=== PATIENT | female | born 1950 | race Caucasian/White ===

== ENCOUNTER → 2024-01-17 12:00 | Outpatient (REF) | payer OTHER, SELFPAY ==
--- NOTE | 2023-12-13 11:26 | PN.DIAED02 ---
Referral
DSME Class Series Code: [id number]
Referred For: Diabetes Self-Management Training
PHI Release Authorization Form Signed: Yes
Patient Problems:
Current Active Problems
Problem Status Onset
Type 2 diabetes mellitus with hyperglycemia
Demographic
(1) Type 2 diabetes mellitus with hyperglycemia
Status: Acute Code(s): E11.65 - Type 2 diabetes mellitus with hyperglycemia
Patient's primary language-: Romanian
Education: College degree
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
Hours Worked/Week: > 40 (50)
- Social
Primary Support Person: Self & spouse
Primary Care Takers: Self
Living Arrangements: Self & spouse
- Learning Methods
Preferred Method: Other (combination)
Barriers to Learning: None
Glycemic Control
- Blood Glucose Monitoring Assessment
Date: 12/13/23
Blood glucose monitoring at home: No
Monitor Brands: Accu-Chek ([employer] Accuchek Guide Me from home)
Frequency: 2x per day
Time: fasting, after breakfast, after lunch, after dinner
- Hemoglobin A1c
Date: 08/11/23
A1C Percentage (%): 8.8
Medical History of Diabetes
Family Diabetes History: Father, Grandmother (on paternal side), Other (uncle on maternal side)
Previous Diabetes Education: No
Previous visit with Dietitian: No
Complications/Comorbidity/Specialist: Hypertension
Measures
- Anthropometrics
Height: 5 ft 4 in
Actual Weight: 155 lb
- Blood Pressure / Pulse
Blood pressure: 130/60
- Diabetes Management
Medical Management for Diabetes: Complete physical exam (09/08/2023), Dental exam (09/2023), Dilated eye exam (04/2024), Other (covid 19 vaccine 07/06/20,07/27/,03/30/22)
Self-Care
- Tobacco Usage
Do you now, or have you ever smoked?: Never smoked
- Alcohol & Drugs Usage
Drinks Alcohol: No
Uses Recreational Drugs: No
- Meals & Dining
Meals & Dining: Patient skips meals: Yes, Food Intolerance / Allergy: No, Cultural / Scientologist Dietary Needs: No
Primary Food Etl Application Developer: Self
Primary Small Engine Mechanic: Self
Dining Out Frequency: 1-3x per week (2)
- Physical Activity
Physical Limitation: No
Patient participates in physical Activity: Yes
Activity Types: Combination (Olympic lifting, dragon boat racing, cardio)
Duration: > 50 minutes (90 minutes)
Frequency: 6-7x per week (6)
Intensity: Moderate
- Patient-Self Assessment
Diabetes Knowledge: Fair
Feelings About Diabetes: Overwhelmed / Confused
General Health: Good
Importance of Health: Extremely
Stress Level: High
Diabetes Interferes With:: Other (don't know)
Depression Survey Score: 2
Care Plan
- Education Needs
Patient Education Needs: Diabetes disease process, Chronic complications, Acute complications, Medication, Monitoring, Physical activity, Psychosocial Adjustment, Nutritional management, Goal setting & problem solving
Recommended Diabetes Training Program based on assessment: Outpatient Diabetes Education Program
- Plan of Care
Plan of Care:
Gladys recently diagnosed 08/2023 with A1C of 8.8%, Taking Metformin 500 mg QD with largest meal (usually dinner). She brought in an AccuChek Guide Me and states she is nervous about sticking herself. Instructions on proper testing technique, testing
pattern and expected results given with good return demonstration. Result 176 mg/dl, 1 1/2 hr post breakfast of a protein shake (Dr. Cheema). Gladys states that the fingerstick was not not as bad as she thought. Also discussed that her insurance with
pay for a Dexcom CGM which she will most likely switch to. If needed, she will bring to class for assistance in setting up. She eats healthy (lunch-salad with salmon, dinner- salad, protein and carb) and exercises 6 days/week. States she does
consume a lot of fruit, recommend having protein with the fruit. She is due for a repeat A1C. Goals established and directions to classroom given.
--- NOTE | 2023-12-13 12:18 | PN.DIAED04 ---
Education Record
- Education Record
Class Attended: Class 1 (pre registration 12/13/23 for outpt DSME classes starting 01/17/24.)
DSME Class Series Code: [id number]
Instructor: Registered Nurse
Class Curriculum:
Outpatient Diabetes Education Program:
Initial Assessment (45 minutes)
Individualized assessment
Develop personal strategies to promote health and behavior change
Development of diabetes self-management support plan
Class Length (mins): 60
Pre-Program Knowledge: Needs review / Assistance
Pre-Test Score (%): 74
Goals
- Goal 1
Being Active: Other (Continue with Olympic lifting, dragon boal racing and cardio 6 days/week for total of 540 minutes.)
Goals To Be Evaluated: Other
- Goal 2
Healthy Eating: Make better food choices, Follow meal plan
Goals To Be Evaluated: Make better food choices. Follow meal plan
- Goal 3
Monitoring: Take blood sugar in the prescribed pattern (handout provided with schedule and expected results.)
Goals To Be Evaluated: Test BG-prescribed times
--- NOTE | 2024-01-18 14:18 | PN.DIAED14 ---
This is to notify you that your patient with diabetes, BRAXTON RUBIN ( 1950), has enrolled in our diabetes self-management classes that are being held at [facility].
These classes will include an introduction to diabetes, diet, medication, exercise and prevention of complications. At the end of our class series, you will receive a report of your patient's participation and progress for your records.
Please contact me at the Diabetes Center, , if there is any particular information regarding your patient that might be helpful to me.
Sincerely,
FAVIOLA Dunn-, [facility]
Director
Diabetes & Nutrition Services
== END ==
LOC: DES 12:00
PROVIDERS: ATTENDING PHYSICIAN Family Medicine; FAMILY PHYSICIAN Family Medicine
DX: E11.65 Type 2 diabetes mellitus with hyperglycemia (principal)
CPT/HCPCS: 99078

== ENCOUNTER → 2024-01-24 12:00 | Outpatient (REF) | payer OTHER, SELFPAY ==
--- NOTE | 2024-01-25 11:05 | PN.DIAED04 ---
Education Record
- Education Record
Class Attended: Class 2
DSME Class Series Code: [id number]
Instructor: Registered Dietitian (Jane Truong, RD, LDN, CDE)
Class Length (mins): 120
== END ==
LOC: DES 12:00
PROVIDERS: ATTENDING PHYSICIAN Family Medicine
DX: E11.65 Type 2 diabetes mellitus with hyperglycemia (principal)
CPT/HCPCS: 99078

== ENCOUNTER → 2024-01-31 12:00 | Outpatient (REF) | payer OTHER, SELFPAY ==
--- NOTE | 2024-02-01 13:41 | PN.DIAED04 ---
Education Record
- Education Record
Class Attended: Class 3
DSME Class Series Code: [id number]
Instructor: Registered Dietitian (Jane Truong, RD, LDN, CDE)
Class Length (mins): 120
Post-Class 2 & 3 Test Score (%): 88
== END ==
LOC: DES 12:00
PROVIDERS: ATTENDING PHYSICIAN Family Medicine
DX: E11.65 Type 2 diabetes mellitus with hyperglycemia (principal)
CPT/HCPCS: 99078

== ENCOUNTER → 2024-02-07 12:00 | Outpatient (REF) | payer OTHER, SELFPAY | LOC: DES 12:00 | PROVIDERS: ATTENDING PHYSICIAN Family Medicine | DX: E11.65 Type 2 diabetes mellitus with hyperglycemia (principal) | CPT/HCPCS: 99078 ==

== ENCOUNTER → 2024-02-14 12:00 | Outpatient (REF) | payer OTHER, SELFPAY ==
--- NOTE | 2024-02-15 11:55 | PN.DIAED16 ---
This is to notify you that your patient with diabetes, BRAXTON RUBIN ( 1950), has attended the entire series of Diabetes Self-Management Education Classes.
Class 1 (120 minutes): Diabetes Overview - monitoring, stress/psychosocial adjustment, support, goal setting
Class 2 (120 minutes): Meal Planning - serving sizes, menu plans
Class 3 (120 minutes): Introduction to Carbohydrate Counting, Analyzing Food Labels
Class 4 (120 minutes): Medication, Exercise and Activity
Class 5 (120 minutes): Sick Day Management, Strategies to Reduce Complications, Problem Solving, Resources
The following behavioral goals were identified:
Other
Make better food choices
Follow meal plan
Test BG-prescribed times
A follow-up call will be made within three to six months to evaluate attainment of these goals and to check post-program Hemoglobin A1c and overall progress. All class participants are encouraged to contact me if I can be any further assistance in
learning how to manage their diabetes.
Sincerely,
FAVIOLA Dunn-, [facility]
Director
Diabetes & Nutrition Services
--- NOTE | 2024-02-16 14:55 | PN.DIAED04 ---
Education Record
- Education Record
Class Attended: Class 5
DSME Class Series Code: [id number]
Instructor: Nurse Practitioner (FAVIOLA Reed)
Class Curriculum:
Outpatient Diabetes Education Program:
Class 5 (120 minutes)
Prevent, detect, and treat acute complications
Prevent, detect, and treat chronic complications through risk reduction
Develop personal strategies to address psychosocial issues and concerns
Development of diabetes self-management support plan
Letter to physician with DSMS plan attached sent
Class Length (mins): 120
Post-Program Knowledge: Demonstrates competency
Post-Test Score (%): 87
Post-Program Assessment
- Post-Program Assessment
Actual Weight: 71.668 kg
Blood pressure: 138/72
Post-Program Depression Survey Score: 1
Reviewing Previous Goals?: Yes
Pre-Program Depression Survey Score: 2
- Goals 1 Evaluation
Goals To Be Evaluated: Other
- Goals 2 Evaluation
Goals To Be Evaluated: Make better food choices. Follow meal plan
- Goals 3 Evaluation
Goals To Be Evaluated: Test BG-prescribed times
== END ==
LOC: DES 12:00
PROVIDERS: ATTENDING PHYSICIAN Family Medicine
DX: E11.65 Type 2 diabetes mellitus with hyperglycemia (principal)
CPT/HCPCS: 99078

== ENCOUNTER → 2024-02-17 13:02 | Outpatient (REF) | payer OTHER, SELFPAY | LOC: HWWDC 13:02 | PROVIDERS: ATTENDING PHYSICIAN Family Medicine | DX: Z12.31 Encounter for screening mammogram for malignant neoplasm of breast (principal) | CPT/HCPCS: 77063; 77067 ==

== ENCOUNTER → 2024-02-24 10:11 | Outpatient (REF) | payer OTHER, SELFPAY | LOC: HWRAD 10:11 | PROVIDERS: ATTENDING PHYSICIAN Family Medicine | DX: M81.0 Age-related osteoporosis without current pathological fracture (principal) | CPT/HCPCS: 77080 ==

== ENCOUNTER 2024-12-05 07:00 | Emergency (ER) | payer OTHER, SELFPAY ==
[2024-12-05 07:01] VITALS: BP 195/106
[2024-12-05 07:39] VITALS: BP 193/111
[2024-12-05 07:40] VITALS: BMI 27.8
--- NOTE | 2024-12-05 08:01 | ED.GENMED ---
History of Present Illness
General
Chief Complaint: Blood Pressure Problem
Source: patient
Exam Limitations: none
Time Seen by Provider: 12/05/24 07:43
Nursing documentation reviewed up to this point in time: agreed with
History of Present Illness
History of Present Illness:
74 yr old female with past medical history of hypertension diabetes presents to the ER for evaluation. She reports she ran out of her meds 2 days ago and last took them Wednesday. She did call her family doctor however has not received a phone call
back. She awoke today around 3 AM with a headache took her blood pressure and it was 188/110 which is patient come to the ER. She does have a headache. She is not take anything for her headache. She denies any chest pain shortness of breath.
Denies blurred vision.
Patient is medicine includes Norvasc hydrochlorothiazide Bystolic and metformin
Past History
Past History
ED Past Medical History: HTN
ED Past Surgical History: None
Social History
Tobacco: Non-smoker
Alcohol: None
Drug: None
Personal:
Living: with family
Employment: Employed
Family History
Family History: Diabetes
Phy Exam
General Physical Exam
General Presentation: no apparent distress
General age: appears stated age
General Skin: warm and cyanotic
General Habitus: normal
General Mental: alert
General Hydration: appears well hydrated
Cardiovascular Exam
Cardiovascular Exam: regular rate/rhythm, no murmur and normal peripheral pulses
Pulmonary Exam
Pulmonary Exam: lungs clear and no respiratory distress
Neurological Exam
Neurological Exam: alert and oriented x3
Musculoskeletal Exam
Musculoskeletal Exam: full ROM
Skin Exam
Skin Exam: normal color and warm/dry
Psychiatric Exam
Psychiatric Exam: normal mood/affect
Course
Orders/Labs/Results
Orders:
Orders
12/05/24 08:03
CT Head W/o Iv Contrast Urgent
Comment:
Reason For Exam: headache
IV Insert/Care/Rem.- Treatment PRN
12/05/24 08:04
Electrocardiogram (*1) Stat
Reason for Study: Other
Other Reason for Exam: chest pain
Cardiac Monitoring- Treatment ONCE
EKG- Treatment ONCE
Amlodipine [Norvasc] 10 mg PO NOW STA
12/05/24 08:06
Hydrochlorothiazide [Oretic] 25 mg PO NOW STA
12/05/24 08:12
Complete Blood Count/With Diff Urgent
Comprehensive Metabolic Panel Urgent
12/05/24 08:20
Nebivolol HCl [Bystolic] 20 mg PO NOW STA
Abnormal Lab Results
12/05/24
08:12
Glucose 160 H mg/dl
(70-99)
12/05/24 08:12
12/05/24 08:12
Vital Signs
Initial and Last Documented VS:
Initial Vital Signs
Temp Pulse Resp BP Pulse Ox
97.9 F 76 16 195/106 95
12/05/24 07:01 12/05/24 07:01 12/05/24 07:01 12/05/24 07:01 12/05/24 07:01
Last Documented Vital Signs
Temp Pulse Resp BP Pulse Ox
97.9 F 73 16 160/76 95
12/05/24 07:01 12/05/24 08:28 12/05/24 07:01 12/05/24 10:33 12/05/24 10:35
MDM/Problems Addressed
Differential Diagnosis Includes:
Not limited to hypertension headache less likely intracranial hemorrhage
MDM/Problems Addressed:
Patient is a 74-year-old female who has a history of hypertension however has been out of her medicine for the past 2 days she ran out. She presented with headache. Patient presents awake alert no acute distress. No recent trauma no blood
thinners blood pressure on arrival was elevated however patient had a normal neurologic exam. No chest pain or shortness of breath. No blurred vision.
CT head negative. Labs unremarkable. Repeat blood pressure taken by myself at 10:40 am 160/76. will send scripts to her pharmacy. pt is very well appearing. headache has since resolved.
*Radiology
Radiology exam reviewed: radiology read reviewed
*Pulse Oximetry
SaO2: 95
Oxygen Mode of Delivery: Room air
Patient hypoxic: no
*EKG
Interpreted by ED Provider?: Yes
Interpretation: normal
Heart Rate: 62
Rate: normal
Rhythm: sinus
Ischemia: no ischemia
*Critical Care Note
Total Time (30-74mins, 75-104mins- exclusive of procedures): Not Applicable
ED Attending Note
-
Portions of this chart may have been created with voice recognition software.� Occasional wrong word or��sound alike� substitutions may have occurred due to the inherent limitations of voice recognition software.
Discharge Plan
Departure
Patient Disposition: Home (Routine Discharge)
Date of Disposition: 12/05/24
Time of Disposition: 10:42
Patient with high blood pressure during this ER visit?: Yes
Condition: Fair
Covid-19: Not Applicable
Discharge Problem:
elevated blood pressure
Instructions: High Blood Pressure (DC), BLOOD PRESSURE
Prescriptions:
New
amlodipine [Norvasc] 10 mg tablet
10 mg PO DAILY Qty: 30 0RF
metformin 500 mg tablet
500 mg PO DAILY Qty: 30 0RF
hydrochlorothiazide 25 mg tablet
25 mg PO DAILY Qty: 30 0RF
nebivolol [Bystolic] 20 mg tablet
20 mg PO DAILY Qty: 30 0RF
No Action
hydrocodone-acetaminophen [Vicodin] 1 EACH tablet
1 ea PO .Q4-6HPRN Qty: 12 0RF
ibuprofen 600 MG tablet
600 mg PO Q6H Qty: 30 0RF
hydrocodone-acetaminophen 5 MG/500 MG tablet
1 tab PO .Q4-6HPRN PRN (Reason: PAIN) Qty: 20 0RF
irmijemjbups-xnqkupaca-jfplvij 118 ML syrup
5 - 10 ml PO Q8 PRN (Reason: Cough) Qty: 120 0RF
prednisone 50 MG tablet
50 mg PO DAILY Qty: 4 0RF
albuterol sulfate [Albuterol Sulfate HFA] 18 GM HFA aerosol inhaler
18 gm inhalation Q4 Qty: 1 0RF
Referrals:
Guanako Ashley MD [Family Provider, Family Practice]
Activity Restrictions/Additional Instructions:
As discussed your CAT scan and labs are unremarkable. Your EKG was unremarkable. You were given your medications here and your blood pressure has improved though still mildly elevated. Please follow-up with your family doctor in the next 2 days
for reevaluation. Prescriptions for Norvasc, hydrochlorothiazide, Bystolic, and metformin were all sent to your. Return if any worsening of symptoms.
Interventions
Interventions:
*Risk Screen - Suicide Last Done: 12/05/24 07:02
*General Assessment Last Done: 12/05/24 07:40
*Neglect/Abuse Screening Last Done: 12/05/24 07:40
*ED- Fall Risk Assessment Last Done: 12/05/24 07:40
*ED COVID-19 Vaccine History Last Done: 12/05/24 07:40
*Nursing Disposition Last Done: 12/05/24 11:08
ED- Cardiac Assessment Last Done: 12/05/24 07:40
ED- Neurological Assessment Last Done: 12/05/24 07:40
ED- Pulmonary Assessment Last Done: 12/05/24 07:40
Discharge Date and Time
Discharge Date/Time: 12/05/24 11:10
Print Language: MAORI
[2024-12-05] MEDS: ORETIC 25 MG PO (08:21)
[2024-12-05] MEDS: NORVASC 10 MG PO (08:22)
[2024-12-05 08:27] LABS: Hematocrit 42.8 % (37.0-47.0); Hemoglobin 14.2 g/dL (12.0-16.0); Mean Corp Hgb Conc. 33.2 g/dL (33.0-37.0); Mean Corpuscular Volume 85.4 fL (81.0-99.0); Nucleated Red Blood Cells % 0 %; Platelet Count 241 10^3/uL (130-400); Red Cell Dist. Width 12.3 % (11.5-14.5)
[2024-12-05] MEDS: BYSTOLIC 20 MG PO (08:28)
[2024-12-05 08:39] LABS: ALT (SGPT) 18 U/L (0-35); AST (SGOT) 23 U/L (14-36); Albumin 4.3 g/dl (3.5-5.0); Alkaline Phosphatase 73 U/L (38-126); Blood Urea Nitrogen 14 mg/dl (7-17); Calcium 9.1 mg/dl (8.4-10.2); Carbon Dioxide 27 mmol/L (22-30); Chloride 107 mmol/L (98-107); Estimated Creatinine Clearance 82 ml/min; Glucose 160 mg/dl (70-99); Potassium 4.7 mmol/L (3.5-5.1); Sodium 140 mmol/L (135-145); Total Protein 7.0 g/dl (6.3-8.2); eGFR > 60.00
[2024-12-05 09:37] VITALS: BP 164/82
[2024-12-05 10:00] VITALS: BP 158/67
[2024-12-05 10:33] VITALS: BP 160/76
== END 2024-12-05 11:10 | disposition home or self-care (01) ==
LOC: EMR 07:00
PROVIDERS: Nurse Practitioner; EMERGENCY PHYSICIAN Emergency Medicine; FAMILY PHYSICIAN Family Medicine
DX: I10 Essential (primary) hypertension (principal); E11.9 Type 2 diabetes mellitus without complications; Z91.148 Patient's other noncompliance with medication regimen for other reason; Z79.84 Long term (current) use of oral hypoglycemic drugs; Z83.3 Family history of diabetes mellitus
CPT/HCPCS: 99284; 70450; 80053; 85025; 93005

== ENCOUNTER 2025-05-06 17:14 | Emergency (ER) | payer OTHER, SELFPAY ==
[2025-05-06 17:16] VITALS: BP 155/73
--- NOTE | 2025-05-06 20:26 | ED.MUSCINJ ---
HPI-Injury
General
Chief Complaint: Musculo-Skeletal Complaint
Source: patient
Exam Limitations: none
Time Seen by Provider: 05/06/25 18:39
History of Present Illness-Injury
Is this injury a work related problem?: No
Is pt an associate of [facility]/[place]?: No
Initial Injury comments:
Patient to emergency department for evaluation after slip and fall. She states that she slipped on ice fell back and hit the back of her head on the ground. Was no loss of consciousness. She also complains of pain to her low back and coccyx area.
Injury occurred just prior to the arrival.
Past History
Past History
ED Past Medical History: HTN
ED Past Surgical History: None
Social History
Tobacco: Non-smoker
Alcohol: None
Drug: None
Personal:
Living: with family
Employment: Employed
Family History
Family History: Diabetes
Review of Systems
Review of Systems
Allergies reviewed?: Yes
All Other Systems: ROS reviewed and negative except as documented in HPI and ROS
Constitutional: Reports no symptoms
EENT: Reports no symptoms
Respiratory: Reports no symptoms
Cardiac: Reports no symptoms
ABD/GI: Reports no symptoms
: Reports no symptoms
Musculoskeletal: Reports joint pain (Pain to low back)
Skin: Reports no symptoms
Neurological: Reports headache
Psychiatric: Reports no symptoms
Musculoskeletal Injury Exam
Musculoskeletal Injury Exam
Lower Back:
Pain with Movement?: Moderate
Tender to palpation?: Moderate
Soft tissue swelling?: None
External deformity and angulation?: None
Joint effusion?: None
Contusion?: Moderate
Hematoma-local bleeding into tissue?: None
Strain- Sprain- Tear (Connective tissue injury)?: Moderate
Crepitus with movement?: No
Joint instability?: No
Malalignment/deformity?: No
Range of motion: Limited
Distal skin color and temperature: normal-warm & good color
Capillary Refill: normal
Normal distal neurovascular exam?: Yes
Phy Exam
General Physical Exam
General Presentation: well appearing and no apparent distress
General age: appears stated age
General Skin: warm and dry
General Habitus: normal
General Mental: alert
Eye Exam
Eye Exam: PERRL, EOMI, conjunctiva normal and globe normal
Neurological Exam
Neurological Exam: alert, oriented x3, CN II-XII intact, no motor deficits, no sensory deficits and speech normal
[place] Coma Scale
Eye Opening: Spontaneous
Verbal Response: Oriented
Motor Response: Obeys Commands
GCS Total Score: 15
Musculoskeletal Exam
Musculoskeletal Exam: full ROM, neuro vasc intact and other (Ambulating in department without difficulty. Full nonpainful range of motion to head and neck, upper and lower extremities.)
Skin Exam
Skin Exam: normal color, warm/dry and no rash
Psychiatric Exam
Psychiatric Exam: normal mood/affect
Injury Course
Orders/Labs/Results
Orders:
Orders
05/06/25 17:21
CT Head W/o Iv Contrast Urgent
Comment:
Reason For Exam: fall, posterior head strike
05/06/25 19:46
Coccyx/Sacrum, 2 View CR [CR Sacrum/coccyx Min 2 View] Urgent
Comment:
Reason For Exam: fall
Lumbar Spine Complete, 4 View [CR Lumbar Spine Comp Min 4 Vw*] Urgent
Comment:
Reason For Exam: fall
*Radiology
Radiology exam reviewed: radiology read reviewed
*Pulse Oximetry
SaO2: 98
Oxygen Mode of Delivery: Room air
Patient hypoxic: no
*Critical Care Note
Total Time (30-74mins, 75-104mins- exclusive of procedures): Not Applicable
Update Note
Update Note:
Patient to emergency department after a slip and fall on ice earlier today. She hit the back of her head on the pavement. No LOC. CT of head and neck was completed, no acute findings noted. She also notes pain to her low back coccyx area. X-ray
was completed. No evidence of fracture noted. Will continue to ice, Tylenol or ibuprofen for any discomfort, and close follow-up with PCP. She was given instructions on signs and symptoms to return to the emergency department and she is agreeable
to this plan.
ED Attending Note
-
Portions of this chart may have been created with voice recognition software.� Occasional wrong word or��sound alike� substitutions may have occurred due to the inherent limitations of voice recognition software.
Discharge Plan
Departure
Patient Disposition: Home (Routine Discharge)
Date of Disposition: 05/06/25
Time of Disposition: 20:24
Patient with high blood pressure during this ER visit?: No
Condition: Good
Covid-19: Not Applicable
Discharge Problem:
Head injury, Coccyx contusion
Instructions: Head injury in adults, Contusion (DC), Ibuprofen, Cold therapy for pain, Contusion
Prescriptions:
No Action
hydrocodone-acetaminophen [Vicodin] 1 EACH tablet
1 ea PO .Q4-6HPRN Qty: 12 0RF
ibuprofen 600 MG tablet
600 mg PO Q6H Qty: 30 0RF
hydrocodone-acetaminophen 5 MG/500 MG tablet
1 tab PO .Q4-6HPRN PRN (Reason: PAIN) Qty: 20 0RF
xzllnnsktxbt-ddiduumdz-vphhccn 118 ML syrup
5 - 10 ml PO Q8 PRN (Reason: Cough) Qty: 120 0RF
prednisone 50 MG tablet
50 mg PO DAILY Qty: 4 0RF
albuterol sulfate [Albuterol Sulfate HFA] 18 GM HFA aerosol inhaler
18 gm inhalation Q4 Qty: 1 0RF
amlodipine [Norvasc] 10 mg tablet
10 mg PO DAILY Qty: 30 0RF
metformin 500 mg tablet
500 mg PO DAILY Qty: 30 0RF
hydrochlorothiazide 25 mg tablet
25 mg PO DAILY Qty: 30 0RF
nebivolol [Bystolic] 20 mg tablet
20 mg PO DAILY Qty: 30 0RF
Referrals:
Guanako Ashley MD [Family Provider, Family Practice] - Follow up in 2-3 days
Interventions
Interventions:
*General Assessment Last Done: 05/06/25 17:16
*Neglect/Abuse Screening Last Done: 05/06/25 17:16
*Nursing Disposition Last Done: 05/06/25 20:42
ED-Musculoskeletal Assessment Last Done: 05/06/25 19:55
Discharge Date and Time
Discharge Date/Time: 05/06/25 20:42
Print Language: GRENADIAN
== END 2025-05-06 20:42 | disposition home or self-care (01) ==
LOC: EMR 17:14
PROVIDERS: EMERGENCY PHYSICIAN Emergency Medicine; FAMILY PHYSICIAN Family Medicine
DX: S09.90XA Unspecified injury of head, initial encounter (principal); R51.9 Headache, unspecified; S30.0XXA Contusion of lower back and pelvis, initial encounter; W00.0XXA Fall on same level due to ice and snow, initial encounter; I10 Essential (primary) hypertension
CPT/HCPCS: 99284; 70450; 72110; 72220